=== PATIENT | female | born 1935 | race Caucasian/White ===

== ENCOUNTER 2021-12-22 15:53 | Emergency (ER) | payer BC ==
[~2021-12-22] VITALS: Ht 147.3 cm; Wt 45.8 kg
--- NOTE | 2021-12-22 16:01 | NUR ---
BIB [facility] 77 NEAR SYNCOPAL EPISODE WHILE ACCOMPANYING HER FOR APPOINTMENT, STATED THAT SHE HAS FELT WEAK AND DIZZY FOR THE PAST COUPLE DAYS. BLOODPRESSURE WAS REPORTED TO HAVE A SYSTOLIC IN 60'S AT THE OFFICE, CURRENTLY 134/73. PT RECIEVED 300CC NORMAL SALINE BOLUS [employer]. BLOOD SUGAR 170 [employer]. DENIES ANY NAUSEA, VOMITTING, AND DIARRHEA. STATED SHE HAS HISTORY OF HYPERPERTENSION AND TOOK 5MG OF AMLODOPINE AND 15MG OF HYDROCHLOTOTHIAZIDE THIS MORNING AFTER BREAKFAST. PT ATTACHED TO MONITOR. WARM BLANKET PROVIDED FOR COMFORT.
[2021-12-22] MEDS ORDERED: IV NS 0.9% 1,000 ML BAG IV ONE (16:30)
[2021-12-22 16:45] LABS: BASOPHILS % (AUTO) 0.4 % (0.0-2.0); EOSINOPHILS % (AUTO) 2.2 % (0.0-6.0); HEMATOCRIT 34 % (33-45); HEMOGLOBIN 11.8 g/dL (11.5-14.8); LYMPHOCYTES # (AUTO) 1.1 K/uL (0.8-4.8); LYMPHOCYTES % (AUTO) 10.1 % (20.0-44.0); MEAN CORPUSCULAR HGB CONC 35 g/dl (31.0-36.0); MEAN CORPUSCULAR VOLUME 100 fL (82-100); MONOCYTES % (AUTO) 9.2 % (2.0-12.0); NEUTROPHILS # (AUTO) 8.4 K/uL (1.8-8.9); NEUTROPHILS % (AUTO) 78.1 % (43.0-81.0); PLATELET COUNT (AUTO) 244 K/uL (150-450); RED BLOOD CELL COUNT(AUTO) 3.44 MIL/uL (4.0-5.2); WHITE BLOOD COUNT (AUTO) 10.7 K/uL (4.3-11.0)
--- NOTE | 2021-12-22 16:52 | NUR ---
PT UNLABLE TO PROVIDE URINE AT THIS TIME. WILL ENCOURAGE AGAIN AFTER RECIVING 1L OF FLUID.
[2021-12-22 17:39] LABS: ALANINE AMINOTRANSFERASE 16 U/L (12-78); ALBUMIN 2.9 g/dL (3.4-5.0); ALKALINE PHOSPHATASE 80 U/L (46-116); ASPARTATE AMINOTRANSFERASE 22 U/L (15-37); BILIRUBIN,DIRECT 0.1 mg/dL (0.0-0.2); BILIRUBIN,TOTAL 0.4 mg/dL (0.2-1.0); CALCIUM, SERUM 8.6 mg/dL (8.5-10.1); CARBON DIOXIDE 25 mmol/L (21-32); CHLORIDE 104 mmol/L (98-107); CREATININE 1.3 mg/dL (0.6-1.3); GLUCOSE 159 mg/dL (74-106); POTASSIUM 4.6 mmol/L (3.5-5.1); SODIUM SERUM 135 mmol/L (136-145); TOTAL PROTEIN, SERUM 6.4 g/dL (6.4-8.2); UREA NITROGEN, BLOOD 31 mg/dL (7-18)
[2021-12-22] MEDS ORDERED: MEMA5TAB42 PO (17:43)
[2021-12-22] MEDS ORDERED: LEVO75TA7 PO (17:43)
[2021-12-22] MEDS ORDERED: FERR325T23 PO (17:43)
[2021-12-22] MEDS ORDERED: TELM80TA9 PO (17:43)
[2021-12-22] MEDS ORDERED: CALC-1143 PO (17:43)
[2021-12-22] MEDS ORDERED: AMLO-212 PO (17:43)
[2021-12-22] MEDS ORDERED: POTA-10 PO (17:43)
[2021-12-22] MEDS ORDERED: ASPI-1169 PO (17:43)
[2021-12-22] MEDS ORDERED: DONE10TA44 PO (17:43)
[2021-12-22] MEDS ORDERED: CHOL100043 PO (17:43)
[2021-12-22] MEDS ORDERED: HYDR25TA4 PO (17:43)
--- NOTE | 2021-12-22 18:01 | NUR ---
URINE COLLECTED AND SENT
[2021-12-22 19:11] LABS: BILIRUBIN,URINE NEGATIVE (NEGATIVE); COLOR,URINE YELLOW (YELLOW); LEUKOCYTE ESTERASE ,URINE NEGATIVE (NEGATIVE); NITRITE, URINE NEGATIVE (NEGATIVE); PROTEIN,URINE NEGATIVE (NEGATIVE); UGLUCOSE NEGATIVE (NEGATIVE); UROBILINOGEN,URINE 0.2 EU/dL (0.2)
--- NOTE | 2021-12-22 19:19 | NUR ---
Patient discharged to home in stable condition. Written and verbal after care instructions given. Patient verbalizes understanding of instruction. Pt ambulatory with a steady gait
[2021-12-22 19:20] VITALS: BP 125/68
== END 2021-12-22 19:21 | disposition home or self-care (01) ==
LOC: ER 15:55
DX: R55 Syncope and collapse (principal); I10 Essential (primary) hypertension; E03.9 Hypothyroidism, unspecified; Z88.2 Allergy status to sulfonamides; Z79.82 Long term (current) use of aspirin; Z79.899 Other long term (current) drug therapy
CPT/HCPCS: 36415; 71045; 80048; 80076; 81003; 82962; 83880; 84484; 85025; 85730; 93005; 96360; 99285; J7030